=== PATIENT | female | born 1950 | race Caucasian/White ===

== ENCOUNTER → 2024-04-04 10:38 | Outpatient (REF) | payer MEDICARE, OTHER, SELFPAY | LOC: MRI 3T 10:38 | PROVIDERS: ATTENDING PHYSICIAN Student in an Organized Health Care Education/Training Program; FAMILY PHYSICIAN Internal Medicine | DX: M54.12 Radiculopathy, cervical region (principal) | CPT/HCPCS: 72141 ==

== ENCOUNTER 2025-01-27 10:07 | Day surgery (SDC) | payer MEDICARE, OTHER, SELFPAY ==
[2025-01-27] VITALS (8 sets, daily range): BP systolic 14–147; BP diastolic 71–82; BMI 28.9
[2025-01-27 10:29] LABS: Hematocrit 39.7 % (37.0-47.0); Hemoglobin 12.8 g/dL (12.0-16.0); Mean Corp Hgb Conc. 32.2 g/dL (33.0-37.0); Mean Corpuscular Volume 82.2 fL (81.0-99.0); Platelet Count 258 10^3/uL (130-400); Red Cell Dist. Width 14.6 % (11.5-14.5)
[2025-01-27 10:41] LABS: INR 0.95; PT 12.8 Sec (11.4-14.6)
[2025-01-27 10:42] LABS: APTT 28.3 Sec (23.4-35.0)
[2025-01-27 10:56] LABS: Blood Urea Nitrogen 20 mg/dl (7-17); Calcium 9.2 mg/dl (8.4-10.2); Carbon Dioxide 28 mmol/L (22-30); Chloride 102 mmol/L (98-107); Estimated Creatinine Clearance 54 ml/min; Glucose 88 mg/dl (70-99); Potassium 3.9 mmol/L (3.5-5.1); Sodium 134 mmol/L (135-145); eGFR > 60.00
[2025-01-27] MEDS: NSS 500 IV (11:10)
[2025-01-27] MEDS: BACTROBAN NASAL 1 GRAM NASAL (11:40)
[2025-01-27] MEDS: PERIDEX 0.12% ORAL RINSE 15 ML PO (11:40)
--- NOTE | 2025-01-27 12:10 | W.SUR.PREOP ---
Pre-Operative Surgical Note
-
I have examined this patient prior to the performance of the scheduled procedure.
The patient's condition is unchanged from the time of the current History and
Physical and the patient is able to undergo the scheduled procedure.
--- NOTE | 2025-01-27 15:11 | OR.RPT ---
Operative Report
Operative Report
Date of Operation: 01/27/2025
Pre Op Diagnosis: Suspected temporal arteritis
Post Op Diagnosis: Suspected temporal arteritis
Procedure: Left temporal artery biopsy
Surgeon: Arley Gann III, MD
Programmer Analyst Consultant: Adrianna Espinoza MD PGY-4
Anesthesia: Sedation/local
Complications: None
Estimated Blood Loss: Less than 5 cc
History and Indications for Procedure: 74-year-old female with symptom constellation raising suspicion for temporal arteritis. I was asked to provide temporal artery biopsy.
Procedure in Detail: Susannah Ching was correctly identified and placed supine on the operating table. After adequate induction of anesthesia, the left temporal pulse was palpated. The left temporal region was then shaved. The temporal artery pulse
was marked and then the temporal region was prepped and draped in the usual sterile fashion. A time-out procedure was performed with the nursing and anesthesia staff confirming the patient's identity as well as nature and laterality of the
procedure. An incision was made over the marked temporal pulse. Careful sharp dissection and electrocautery were used to dissect down to the temporal artery. Adequate length of specimen was then sharply dissected out and the proximal and distal
artery was ligated with silk ties. The intervening segment of artery was then removed after ligating the proximal and distal ends. The artery segment was identified and then passed off to the back table to be sent to pathology. Hemostasis was then
achieved within the wound bed. The wound was irrigated with warm saline solution. The wound was closed in layers and sterile skin glue was applied. The patient tolerated the procedure well and was taken to the recovery room in good condition.
Attestation: I was present and responsible for the entire procedure.
Signed:
Arley Gann III, MD
[facility]
[phone] (jkrd)
== END 2025-01-27 16:30 | disposition home or self-care (01) ==
LOC: CATH 10:07
PROVIDERS: ATTENDING PHYSICIAN Surgery Vascular Surgery; OTHER PHYSICIAN Internal Medicine Cardiovascular Disease; PRIMARYCARE PHYSICIAN Internal Medicine
DX: Z79.899 Other long term (current) drug therapy (principal); Z79.82 Long term (current) use of aspirin
CPT/HCPCS: 37609; 80048; 85027; 85610; 85730; 88305; 88313; 93005